=== PATIENT | female | born 1980 | race African-American/Black ===

== ENCOUNTER 2018-04-30 13:40 | Emergency (ER) | payer MEDICARE, MEDICAID ==
[~2018-04-30] VITALS: Ht 162.6 cm; Wt 72.1 kg
[~2018-04-30 13:40] MED LIST: CEPH-264 PO; HYDR-971 PO; IBUP800T19 PO; SUMA100T3 PO
[2018-04-30 13:57] VITALS: BP 133/96
[2018-04-30] MEDS ORDERED: DIPHTH,PERTUSS(ACELL),TET TOX 0.5 ML DISP.SYRIN. VAX IM ONE (14:15)
--- NOTE | 2018-04-30 14:22 | PHYS DOC ---
Past History Past Medical History: Bipolar, Hypertension, Schizophrenia Past Surgical History: Other Smoking: Greater than 1 pack/day Alcohol Use: Occasionally Drug Use: None Adult General Chief Complaint Chief Complaint: MECHANICAL FALL HPI HPI Patient is a 37 year old female with history of bipolar and schizophrenia who presents with complaining of a fall. Patient states she lost her balance and had a fall from 4-5 concrete stairs yesterday at home without loss of consciousness. Patient complaining of pain in right side of her body from head to toe and rated her pain 10/10. Patient complaining of ecchymosis and abrasion of upper and lower extremity and states her last tetanus shot was more than 5 years ago. Patient states she didn't take pain medication at home. She denies . Review of Systems Review of Systems Constitutional: Denies fever or chills [] Eyes: Denies change in visual acuity, redness, or eye pain [] HENT: Denies nasal congestion or sore throat [] Respiratory: Denies cough or shortness of breath [] Cardiovascular: No additional information not addressed in HPI [] GI: Denies abdominal pain, nausea, vomiting, bloody stools or diarrhea [] : Denies dysuria or hematuria [] Musculoskeletal: Denies back pain, reports joint pain [] Integument: Denies rash or skin lesions reports ecchymosis on palpation[] Neurologic: Denies headache, focal weakness or sensory changes [] Endocrine: Denies polyuria or polydipsia [] All other systems were reviewed and found to be within normal limits, except as documented in this note. Allergies Allergies Allergies Coded Allergies Type Severity Reaction Last Updated Verified Penicillins Allergy Intermediate rash 04/22/16 Yes Physical Exam Physical Exam Constitutional: Well nourished, no acute distress, non-toxic appearance. [] HENT: Normocephalic, atraumatic, bilateral external ears normal, oropharynx moist, no oral exudates, nose normal. [] Eyes: PERRLA, EOMI, conjunctiva normal, no discharge. [] Neck: Normal range of motion, no tenderness, supple, no stridor. [] Cardiovascular:Heart rate regular rhythm, no murmur [] Lungs & Thorax: Bilateral breath sounds clear to auscultation [] Abdomen: Bowel sounds normal, soft, no tenderness, no masses, no pulsatile masses. [] Skin: Warm, dry, no erythema, no rash. [] Back: No tenderness, no CVA tenderness. [] Extremities: Small intrusion in medial side of right great toe that looks old .few area of very superficial skin erythema without opening skin, no ecchymosis , No tenderness, no cyanosis, no clubbing, ROM intact, no edema. [] Neurologic: Alert and oriented X 3, normal motor function, normal sensory function, no focal deficits noted. [] Psychologic: Affect anxious, judgement normal, mood normal. [] Current Patient Data Vital Signs Vital Signs Date Time Temp Pulse Resp B/P (MAP) Pulse Ox O2 Delivery O2 Flow Rate FiO2 04/30/18 13:57 98.8 80 20 100 Room Air EKG EKG [] Radiology/Procedures Radiology/Procedures [][address] [id number] IMAGING REPORT Signed PATIENT: MARIO MATHEW ACCOUNT: [id number] : 1980 LOCATION: ER AGE: 37 SEX: F EXAM STATUS: REG ER ORD. PHYSICIAN: JORGE FRANCO MD REASON: injury PROCEDURE: FOOT RIGHT 3V Right foot, 3 views, 04/30/2018: HISTORY: Open wound on right foot No fracture or destructive bony lesion is seen. There is mild generalized subcutaneous edema. IMPRESSION: No acute bony abnormality is detected. Electronically signed by: Aaron Adame MD (04/30/2018 3:10 PM) [facility] DICTATED AND SIGNED BY: AARON ADAME MD DATE: 04/30/18 1509 CC: JORGE FRANCO MD; WICHO SORTO ~ Course & Med Decision Making Course & Med Decision Making Pertinent Imaging studies reviewed. (See chart for details) Evaluation of patient in ER showed 37-year-old male patient with complaining of a fall from stairs yesterday. Patient had very few superficial skin erythema without opening skin. Patient had unlimited range of motion of extremities. Patient states she is not up-to-date with tetanus immunization but according to EMR she had tetanus on March 16, 2016 and order for tetanus was consulted. Patient had unremarkable x-ray of her foot and was upset that does not getting ortho shoe in emergency room because Medicaid pays for the shoe. [] Dragon Disclaimer Dragon Disclaimer This electronic medical record was generated, in whole or in part, using a voice recognition dictation system. Departure Departure: Impression: Primary Impression: Fall down stairs Additional Impressions: Contusion Bipolar disorder Tobacco abuse Tobacco abuse counseling Disposition: HOME, SELF-CARE (at 1504) Condition: STABLE Referrals: WICHO SORTO (PCP) Patient Instructions: Contusion, Fall Prevention and Home Safety Additional Instructions: Drink plenty of liquids Follow-up with your primary care physician in 3-5 days Return to ER if not getting better Scripts Naproxen (NAPROSYN) 500 Mg Tablet 1 TAB PO BID, #14 TAB Prov: JORGE FRANCO MD 04/30/18 Problem Qualifiers JORGE FRANCO MD Apr 30, 2018 14:22
[2018-04-30] MEDS ORDERED: KETOROLAC 60 MG/2 ML VIAL. IM ONE (14:30)
[2018-04-30] MEDS ORDERED: NAPR-683 PO (15:05)
--- NOTE | 2018-04-30 15:13 | RAD ---
Right foot, 3 views, 04/30/2018: HISTORY: Open wound on right foot No fracture or destructive bony lesion is seen. There is mild generalized subcutaneous edema. IMPRESSION: No acute bony abnormality is detected. Electronically signed by: Aaron Adame MD (04/30/2018 3:10 PM) [facility]
== END 2018-04-30 15:15 | disposition home or self-care (01) ==
LOC: ER 13:40
DX: S80.11XA Contusion of right lower leg, initial encounter (principal); S60.221A Contusion of right hand, initial encounter; F31.9 Bipolar disorder, unspecified; F20.9 Schizophrenia, unspecified; F17.200 Nicotine dependence, unspecified, uncomplicated; I10 Essential (primary) hypertension; Z71.6 Tobacco abuse counseling; Z88.0 Allergy status to penicillin; W10.8XXA Fall (on) (from) other stairs and steps, initial encounter; Y93.89 Activity, other specified; Y92.098 Other place in other non-institutional residence as the place of occurrence of the external cause; Y99.8 Other external cause status
CPT/HCPCS: 73630; 96372; 99284; J1885

== ENCOUNTER → 2018-10-15 | Day surgery (SDC) | payer MEDICARE, MEDICAID ==
[~2018-10-15] MED LIST changes: +ALBUTEROL SULFATE 2.5 MG/3 ML NEBU. NEB PRN; +ATROPINE 0.5 MG/5 ML DISP.SYRIN. IV PRN; +AZIT250T PO; +BUPR300T4 PO; +BUTA1CAP31 PO; +HYDR-3165 PO; -HYDR-971 PO; +IV RINGERS SOLUTION,LACTATED 1,000 ML IV SCH; +LIDOCAINE 2% PF Vial for OR 5 ML VIAL. ONE; +LINA290C PO; +LURA40TA PO; +MELO7.5T29 PO; +METO50TA29 PO; +NALOXONE 0.4 MG/ML VIAL. IV PRN; +NAPR-683 PO; +ONDANSETRON PF 4 MG/2 ML VIAL. IV PRN; +ORPH-16 PO; +PHEN37.598 PO; +PROPOFOL 10,000 MCG/ML (20ML) VIAL IV ONE; +PROPOFOL 40 ML IV ONE; +diphenhydrAMINE 50 MG/ML VIAL IV PRN
[2018-10-15 14:12] LABS: U PREG PATIENT NEGATIVE (NEG)
[2018-10-15 15:00] VITALS: BP 105/72
== END | disposition home or self-care (01) ==
LOC: SURG 13:12
PROVIDERS: ATTEND Internal Medicine Gastroenterology
DX: Z12.11 Encounter for screening for malignant neoplasm of colon (principal); D12.2 Benign neoplasm of ascending colon; I10 Essential (primary) hypertension; F31.9 Bipolar disorder, unspecified; Z88.0 Allergy status to penicillin; Z86.010 Personal history of colon polyps; Z98.890 Other specified postprocedural states
CPT/HCPCS: 45385; 81025; J2704; J7120; J2001

== ENCOUNTER 2019-02-06 19:45 | Emergency (ER) | payer MEDICARE, MEDICAID ==
[2018-10-15 15:00] VITALS: BP 105/72
[~2019-02-06] VITALS: Ht 162.6 cm; Wt 71.0 kg
[~2019-02-06 19:45] MED LIST changes: -ALBUTEROL SULFATE 2.5 MG/3 ML NEBU. NEB PRN; -ATROPINE 0.5 MG/5 ML DISP.SYRIN. IV PRN; -AZIT250T PO; -BUTA1CAP31 PO; -IV RINGERS SOLUTION,LACTATED 1,000 ML IV SCH; -LIDOCAINE 2% PF Vial for OR 5 ML VIAL. ONE; -MELO7.5T29 PO; -NALOXONE 0.4 MG/ML VIAL. IV PRN; -ONDANSETRON PF 4 MG/2 ML VIAL. IV PRN; -ORPH-16 PO; -PROPOFOL 10,000 MCG/ML (20ML) VIAL IV ONE; -PROPOFOL 40 ML IV ONE; -diphenhydrAMINE 50 MG/ML VIAL IV PRN
--- NOTE | 2019-02-06 20:08 | PHYS DOC ---
Past History Past Medical History: Bipolar, Hypertension, Schizophrenia Past Surgical History: Other Smoking: Greater than 1 pack/day Alcohol Use: Occasionally Drug Use: None Adult General Chief Complaint Chief Complaint: MULTIPLE COMPLAINTS HPI HPI Patient is a 38-year-old female who presents with complaint of multiple symptoms to include sore throat for the last couple of days, congestion and migraine. Patient states that she does have a history of migraines and she rates her headache and 8 out of 10. She denies any fever. She does indicate that she's had some nausea but no vomiting. Patient states that nothing is improving her symptoms.[] Review of Systems Review of Systems Constitutional: Denies fever or chills [] HENT: Complains of congestion and sore throat [] Respiratory: Denies cough or shortness of breath [] Cardiovascular: No additional information not addressed in HPI [] Integument: Denies rash or skin lesions [] Neurologic: Complains of headache without focal weakness or sensory changes [] Allergies Allergies Allergies Coded Allergies Type Severity Reaction Last Updated Verified Penicillins Allergy Intermediate rash 04/22/16 Yes Physical Exam Physical Exam Constitutional: Well developed, well nourished, no acute distress, non-toxic appearance. [] HENT: Normocephalic, atraumatic, bilateral external ears normal, oropharynx moist, with pharyngeal erythema. [] Neck: Normal range of motion, no tenderness, supple, no stridor. [] Cardiovascular:Heart rate regular rhythm, no murmur [] Lungs & Thorax: Bilateral breath sounds clear to auscultation [] Neurologic: Alert and oriented X 3, no focal deficits noted. [] EKG EKG [] Radiology/Procedures Radiology/Procedures [] Course & Med Decision Making Course & Med Decision Making Pertinent Labs and Imaging studies reviewed. (See chart for details) [] Dragon Disclaimer Dragon Disclaimer This electronic medical record was generated, in whole or in part, using a voice recognition dictation system. Departure Departure: Impression: Primary Impression: Migraine Additional Impression: Upper respiratory infection Disposition: 01 HOME, SELF-CARE Condition: STABLE Referrals: WICHO SORTO (PCP) Patient Instructions: Migraine Headache, Upper Respiratory Infection, Adult Scripts Butalbital/Aspirin/Caffeine (FIORINAL 50-325-40 MG CAPSULE) 1 Each Capsule 1 EACH PO Q6HRS PRN for HEADACHE, #20 CAP Prov: EDVIN ESPINOSA Jr. DO 02/06/19 Azithromycin (ZITHROMAX) 250 Mg Tablet 1 PKG PO UD for INFECTION, #6 TAB Prov: EDVIN ESPINOSA Jr. DO 02/06/19 Problem Qualifiers Primary Impression: Migraine Migraine type: unspecified Status migrainosus presence: without status migrainosus Intractability: not intractable Qualified Codes: G43.909 - Migraine, unspecified, not intractable, without status migrainosus Additional Impression: Upper respiratory infection URI type: unspecified URI Qualified Codes: J06.9 - Acute upper respiratory infection, unspecified EDVIN ESPINOSA Jr. DO Feb 06, 2019 20:08
[2019-02-06] MEDS ORDERED: KETOROLAC 60 MG/2 ML VIAL. IM ONE (20:15)
[2019-02-06] MEDS ORDERED: SUMAtriptan SUCC 6 MG/0.5 ML VIAL SQ ONE (20:15)
[2019-02-06] MEDS ORDERED: METOCLOPRAMIDE HCL 10 MG/2 ML VIAL. IM ONE (20:15)
[2019-02-06] MEDS ORDERED: BUTA1CAP31 PO (20:59)
[2019-02-06] MEDS ORDERED: AZIT250T PO (20:59)
== END 2019-02-06 21:14 | disposition home or self-care (01) ==
LOC: ER 19:45
DX: J06.9 Acute upper respiratory infection, unspecified (principal); G43.909 Migraine, unspecified, not intractable, without status migrainosus; F31.9 Bipolar disorder, unspecified; I10 Essential (primary) hypertension; F20.9 Schizophrenia, unspecified; F17.200 Nicotine dependence, unspecified, uncomplicated; Z88.0 Allergy status to penicillin
CPT/HCPCS: 87070; 87880; 96372; 99284; J1885; J2765; J3030

== ENCOUNTER 2019-02-10 10:39 | Emergency (ER) | payer MEDICARE, MEDICAID ==
[~2019-02-10] VITALS: Ht 162.6 cm; Wt 71.0 kg
[~2019-02-10 10:39] MED LIST changes: +AZIT250T PO; +BUTA1CAP31 PO
[2019-02-10] MEDS ORDERED: MELO7.5T29 PO (11:24)
[2019-02-10] MEDS ORDERED: ORPH-16 PO (11:24)
--- NOTE | 2019-02-10 11:24 | PHYS DOC ---
Past History Past Medical History: Bipolar, Hypertension, Schizophrenia Past Surgical History: Other Smoking: Greater than 1 pack/day Alcohol Use: Occasionally Drug Use: None Adult General Chief Complaint Chief Complaint: Neck Pain HPI HPI Patient is a 38-year-old female presents with right-sided neck and shoulder pain after doing yard work. This has been present for the past 2-3 days. No weakness or numbness. Increased pain with movement. No trauma. No chest pain or palpitations. No nausea or vomiting. No relief with ibuprofen. Pain is moderate to severe in intensity.[] Review of Systems Review of Systems Constitutional: Denies fever or chills [] Eyes: Denies change in visual acuity, redness, or eye pain [] HENT: Denies nasal congestion or sore throat [] Respiratory: Denies cough or shortness of breath [] Cardiovascular: No chest pain or palpitations[] GI: Denies abdominal pain, nausea, vomiting, bloody stools or diarrhea [] : Denies dysuria or hematuria [] Musculoskeletal: See history of present illness[] Integument: Denies rash or skin lesions [] Neurologic: Denies headache, focal weakness or sensory changes [] Endocrine: Denies polyuria or polydipsia [] All other systems were reviewed and found to be within normal limits, except as documented in this note. Allergies Allergies Allergies Coded Allergies Type Severity Reaction Last Updated Verified Penicillins Allergy Intermediate rash 04/22/16 Yes Physical Exam Physical Exam Constitutional: Well developed, well nourished, mild discomfort, non-toxic appearance. [] HENT: Normocephalic, atraumatic, bilateral external ears normal, oropharynx moist, no oral exudates, nose normal. [] Eyes: PERRLA, EOMI, conjunctiva normal, no discharge. [] Neck: Normal range of motion, tenderness of the right sided cervical paraspinal musculature and trapezius. No midline tenderness. No step-off. No crepitus. No cervical lymphadenopathy, supple, no stridor. [] Cardiovascular:Heart rate regular rhythm, no murmur [] Lungs & Thorax: Bilateral breath sounds clear to auscultation [] Abdomen: Not examined[] Skin: Warm, dry, no erythema, no rash. [] Back: No tenderness, no CVA tenderness. [] Extremities: Right shoulder has tenderness of the PCS. Full active range of motion. No weakness. Patient is distally neurovascularly intact. No bony tenderness. The other 3 extremities show: No tenderness, no cyanosis, no clubbing, ROM intact, no edema. [] Neurologic: Alert and oriented X 3, normal motor function, normal sensory function, no focal deficits noted. [] Psychologic: Affect normal, judgement normal, mood normal. [] Current Patient Data Vital Signs Vital Signs Date Time Temp Pulse Resp B/P (MAP) Pulse Ox O2 Delivery O2 Flow Rate FiO2 02/10/19 10:49 97.7 91 21 100 Room Air EKG EKG [] Radiology/Procedures Radiology/Procedures [] Course & Med Decision Making Course & Med Decision Making Pertinent Labs and Imaging studies reviewed. (See chart for details) Medical decision making: This appears to be muscular in nature. There is no evidence of a fracture, dislocation, or neurologic compromise. We will treat with NSAIDs and muscle relaxants.[] Dragon Disclaimer Dragon Disclaimer This electronic medical record was generated, in whole or in part, using a voice recognition dictation system. Departure Departure: Impression: Primary Impression: Trapezius muscle strain Disposition: HOME, SELF-CARE Condition: IMPROVED Referrals: WICHO SORTO (PCP) Follow-up in 2 days Patient Instructions: Muscle Strain Additional Instructions: Follow-up with your regular doctor in 2 days. Take the medication as prescribed. Return to the ER if worsening pain, weakness, or any other concerns. Scripts Orphenadrine Citrate (ORPHENADRINE CITRATE) 100 Mg Tablet.er 100 MG PO BID for BACK PAIN, #20 TAB.SR Prov: MARTÍN ANDREWS DO 02/10/19 Meloxicam (MELOXICAM) 7.5 Mg Tablet 7.5 MG PO DAILY for PAIN, #20 TAB Prov: MARTÍN ANDREWS DO 02/10/19 Problem Qualifiers Primary Impression: Trapezius muscle strain Encounter type: initial encounter Laterality: right Qualified Codes: S46.811A - Strain of other muscles, fascia and tendons at shoulder and upper arm level, right arm, initial encounter MARTÍN ANDREWS DO Feb 10, 2019 11:24
[2019-02-10 11:29] VITALS: BP 128/84
== END 2019-02-10 11:31 | disposition home or self-care (01) ==
LOC: ER 10:39
DX: S46.811A Strain of other muscles, fascia and tendons at shoulder and upper arm level, right arm, initial encounter (principal); F31.9 Bipolar disorder, unspecified; I10 Essential (primary) hypertension; F20.9 Schizophrenia, unspecified; F17.200 Nicotine dependence, unspecified, uncomplicated; Z88.0 Allergy status to penicillin; X50.9XXA Other and unspecified overexertion or strenuous movements or postures, initial encounter; Y93.89 Activity, other specified; Y92.89 Other specified places as the place of occurrence of the external cause; Y99.8 Other external cause status
CPT/HCPCS: 99283

== ENCOUNTER → 2019-04-18 | Outpatient (CLI) | payer MEDICARE, MEDICAID ==
[~2019-04-18] MED LIST changes: +MELO7.5T29 PO; +ORPH-16 PO
--- NOTE | 2019-04-18 16:56 | RAD ---
AP and lateral cervical spine radiographs 04/18/2019 Clinical history: Neck pain. AP, lateral and AP open mouth odontoid digital radiographs of the cervical spine were obtained. Comparison is made to the patient's MRI of the cervical spine dated 02/20/2019. There is mild straightening of the normal cervical lordosis. The patient is post anterior discectomy and fusion using an anterior plate, bone screws and bone graft material at C6-7. Degenerative changes are seen involving the C4-5, C5-C6 and C7-T1 disc spaces consisting of vertebral endplate sclerosis and minimal to mild anterior vertebral body osteophyte formation. Degenerative changes are seen involving the uncovertebral and facet joints involving the lower cervical spine. No fracture or subluxation is seen. No prevertebral soft tissue swelling is noted. IMPRESSION: Postsurgical changes and degenerative changes are seen involving cervical spine as discussed above. No acute osseous abnormality is seen. Electronically signed by: Cm Marshall MD (04/18/2019 4:53 PM) [id number]
== END | disposition home or self-care (01) ==
LOC: DXRAD 15:49
PROVIDERS: ATTEND Neurological Surgery
DX: M47.812 Spondylosis without myelopathy or radiculopathy, cervical region (principal); M25.78 Osteophyte, vertebrae; Z98.890 Other specified postprocedural states
CPT/HCPCS: 72040

== ENCOUNTER → 2019-06-04 | Outpatient (CLI) | payer MEDICARE, MEDICAID ==
--- NOTE | 2019-06-04 15:43 | RAD ---
EXAM: Cervical spine, 2 views. HISTORY: Fusion. COMPARISON: 04/18/2019 FINDINGS: 2 views of cervical spine are obtained. There is instrumented intraspinal fusion and interbody fusion at C6-C7. There is degenerative endplate remodeling with anterior spurring primarily at C5-C6, and to a lesser extent, C4-C5. IMPRESSION: 1. Instrumented fusion at C6-C7. 2. Degenerative change at the mid cervical levels. Electronically signed by: Jody Lopez MD (06/04/2019 3:40 PM) [place] [id number]
== END | disposition home or self-care (01) ==
LOC: DXRAD 13:34
PROVIDERS: ATTEND Physician Assistant Medical
DX: M43.22 Fusion of spine, cervical region (principal); M47.892 Other spondylosis, cervical region
CPT/HCPCS: 72040

== ENCOUNTER 2019-06-13 05:47 | Emergency (ER) | payer MEDICARE, MEDICAID ==
[~2019-06-13] VITALS: Ht 162.6 cm; Wt 71.2 kg
[2019-06-13 05:59] VITALS: BP 125/94
--- NOTE | 2019-06-13 06:40 | PHYS DOC ---
Past History Past Medical History: Anxiety, Arthritis, Bipolar, Ovarian Cyst, Schizophrenia Past Surgical History: Cervical Fusion, Other Additional Past Surgical Histo: Breast reduction, ovarian cyst removal Smoking: Greater than 1 pack/day Alcohol Use: Occasionally Drug Use: None Adult General Chief Complaint Chief Complaint: INSECT BITE HPI HPI 39-year-old female presents with chest wall mass. Patient states that she just noticed this lump yesterday. It is about 1 cm in diameter and somewhat tender to the touch. There is a small hole at the center, but no fluctuance or discharge. There is no surrounding erythema of the skin. The patient does not recall getting bit or stung by anything. She denies chance of a foreign body. She has no other complaints. She denies fever or chills. Review of Systems Review of Systems Constitutional: Denies fever or chills [] Eyes: Denies change in visual acuity, redness, or eye pain [] HENT: Denies nasal congestion or sore throat [] Respiratory: Denies cough or shortness of breath [] Cardiovascular: No additional information not addressed in HPI [] GI: Denies abdominal pain, nausea, vomiting, bloody stools or diarrhea [] : Denies dysuria or hematuria [] Musculoskeletal: Denies back pain or joint pain [] Integument: One centimeter mass in the right upper chest[] Neurologic: Denies headache, focal weakness or sensory changes [] Endocrine: Denies polyuria or polydipsia [] All other systems were reviewed and found to be within normal limits, except as documented in this note. Allergies Allergies Allergies Coded Allergies Type Severity Reaction Last Updated Verified Penicillins Allergy Intermediate rash 04/22/16 Yes Physical Exam Physical Exam Constitutional: Well developed, well nourished, no acute distress, non-toxic appearance. [] HENT: Normocephalic, atraumatic, bilateral external ears normal, oropharynx moist, no oral exudates, nose normal. [] Eyes: PERRLA, EOMI, conjunctiva normal, no discharge. [] Neck: Normal range of motion, no tenderness, supple, no stridor. [] Cardiovascular:Heart rate regular rhythm, no murmur [] Lungs & Thorax: Bilateral breath sounds clear to auscultation [] Abdomen: Bowel sounds normal, soft, no tenderness, no masses, no pulsatile masses. [] Skin: One centimeter firm area just under the skin of the right upper chest with central hole. Small amount of thick discharge consistent with cystic fluid.[] Back: No tenderness, no CVA tenderness. [] Extremities: No tenderness, no cyanosis, no clubbing, ROM intact, no edema. [] Neurologic: Alert and oriented X 3, normal motor function, normal sensory function, no focal deficits noted. [] Psychologic: Affect normal, judgement normal, mood normal. [] Current Patient Data Vital Signs Vital Signs Date Time Temp Pulse Resp B/P (MAP) Pulse Ox O2 Delivery O2 Flow Rate FiO2 06/13/19 05:59 98.0 98 16 100 Room Air EKG EKG [] Radiology/Procedures Radiology/Procedures [] Course & Med Decision Making Course & Med Decision Making Pertinent Labs and Imaging studies reviewed. (See chart for details) Upon initial exam, this appeared to be an insect bite or a small foreign body. There was no erythema or area of fluctuance to raise concern of infection. I placed the ultrasound on the area and it was a consistent echodensity without vascularity. There were a couple times where it appeared as though there could be a small hyperdense area. This was not consistent with multiple passes. I do not believe there is a foreign body there. Upon additional exam and slightly firmer palpation, a thick fluid did come out of the central hole. This appears to be a hair follicle with the drainage started. This fluid appears to be consistent with epidermal cyst. Have advised the patient to monitor this the next week or 2. May decrease in size but it may persist. If it continues to bother her, she should consider having cyst removed by dermatology. She is stable for discharge at this time. [] Dragon Disclaimer Dragon Disclaimer This electronic medical record was generated, in whole or in part, using a voice recognition dictation system. Departure Departure: Impression: Primary Impression: Epidermoid cyst of skin of chest Disposition: 01 HOME, SELF-CARE Condition: STABLE Referrals: WICHO SORTO (PCP) Patient Instructions: Epidermal Cyst, [id number] DEIDRA SORIANO DO Jun 13, 2019 06:40
== END 2019-06-13 06:42 | disposition home or self-care (01) ==
LOC: ER 05:47
DX: L72.0 Epidermal cyst (principal); J45.909 Unspecified asthma, uncomplicated; F20.9 Schizophrenia, unspecified; F17.200 Nicotine dependence, unspecified, uncomplicated; Z88.0 Allergy status to penicillin
CPT/HCPCS: 99284